=== PATIENT | female | born 1970 | race Caucasian/White ===

== ENCOUNTER → 2017-03-04 | Outpatient (CLI) | payer OTHER ==
[~2017-03-04] MED LIST: ATIVAN0.5 MG PO; CLARITIN5 MG PO; PROBIOTIC1 EAC1 PO; TIZANIDINE HCL2 M1 PO
== END ==
LOC: ULTRA 13:01
DX: N63 Unspecified lump in breast (principal)

== ENCOUNTER → 2018-08-21 | Outpatient (CLI) | payer OTHER | LOC: RAD 01:29 → ULTRA 16:31 → RAD 16:38 | DX: N64.4 Mastodynia (principal); R92.2 Inconclusive mammogram ==

== ENCOUNTER → 2019-08-14 | Outpatient (CLI) | payer OTHER | LOC: RAD 01:08 | DX: Z12.31 Encounter for screening mammogram for malignant neoplasm of breast (principal); N60.19 Diffuse cystic mastopathy of unspecified breast; N60.01 Solitary cyst of right breast; N60.02 Solitary cyst of left breast ==

== ENCOUNTER → 2020-01-03 | Outpatient (CLI) | payer OTHER ==
[~2020-01-03] VITALS: Ht 162.6 cm; Wt 72.6 kg
[~2020-01-03] MED LIST changes: +ATIVAN2 MG PO; +MULTI VITAMIN1 EACH PO; +PANTOPRAZOLE SO40 M1 PO; +VALACYCLOVIR500 MG PO; +XOPENEX HFA15 GM INH
--- NOTE | ~2020-01-03 | P ---
[facility] [place] [address] PROCEDURE REPORT Name: GILDARDO BRANTLEY Room #: REG [facility]#: [id number] Admission: 01/03/20 Attend Phys: Javed Medley MD Discharge: Date of : 66 Report #: [id number] THIS REPORT FOR: cc: Raj Kumar,Javed Coyle MD ~ CC: Javed Albert OUTPATIENT COLONOSCOPY BRIEF HISTORY: The patient is a 49-year-old woman with a history of colon polyps. She had 2 polyps removed one time and one was a cm. She presents for high risk screening colonoscopy. 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 PREOPERATIVE DIAGNOSIS: High-risk screening colonoscopy. POSTOPERATIVE DIAGNOSES: 1. Diminutive polyps x 2, cecum. 2. A 5-mm flat polyp, proximal ascending colon. MEDICATIONS: Deep sedation with propofol per anesthesia. SPECIMENS: 1. Cecal polyps x 2. 2. Polyp, proximal ascending colon. ESTIMATED BLOOD LOSS: 3 mL. PROCEDURE: Colonoscopy to cecum and terminal ileum with snare polypectomy and biopsy. FINDINGS: Prior to propofol sedation, procedure of colonoscopy discussed with the patient as well as potential risks and its complications. She indicates she understands and desires to proceed. DESCRIPTION OF PROCEDURE: With the patient in left lateral decubitus position, digital examination was completed, which revealed no abnormalities. Subsequently, the Olympus video colonoscope was introduced into the rectum, advanced under direct vision to the cecum. It was done with minimal difficulty. The cecum was identified by ileocecal valve and the appendiceal orifice. I was able to visualize the distal segment of terminal ileum, which was inspected and noted to be unremarkable. At that point, the scope was slowly withdrawn and careful circumferential views obtained. Upon slow withdrawal of the scope, there were limitations of prep. However, with extensive irrigation and [facility] [address] [place] [address] PROCEDURE REPORT Name: KARONGILDARDO Cat Room #: REG [facility].#: [id number] Admission: 01/03/20 Attend Phys: Javed Medley MD Discharge: Date of : 66 Report #: [id number] suctioning, we were overall able to achieve a good prep. The mucosa was within normal limits, normal vascular pattern, normal light reflex. Within the cecum, 2 diminutive polyps were seen and removed with biopsy forceps. As we withdrew the scope further, a flat 5-mm polyp in the proximal ascending colon was seen and removed by cold snare polypectomy. The scope was further withdrawn and no additional neoplastic lesions were seen during the remainder of the exam. The mucosa was otherwise unremarkable. In the sigmoid colon, there was ____, but I did not see any evidence of diverticular disease. Scope was further withdrawn and no additional abnormalities were seen. Scope was withdrawn from the rectum, no abnormalities were seen. Upon retroflexion, no abnormalities were seen. Scope was withdrawn. The patient tolerated the procedure well. CONDITION OF THE PATIENT UPON DISCHARGE: Following the procedure, the patient was drowsy, arousable and conversant. She will be discharged home when fully ambulatory. INSTRUCTIONS TO THE PATIENT AND FAMILY AT THE TIME OF DISCHARGE: Total of 3 polyps were identified and removed today. We will follow up on the pathology and make further recommendations. If all 3 are adenomas, she should return in 3 years, otherwise return in 5 years for high risk screening colonoscopy. Withdrawal time from the cecum was 18 minutes 33 seconds. By: [id number] [id number] Javed Medley MD /nt
--- NOTE | 2020-01-04 16:07 | PATH ---
[facility] [place] [address] PATHOLOGY RPT PROCEDURE Name: GILDARDO RENE Room #: REG [facility] Jono.#: [id number] Admission: 01/03/20 Date of : 66 Discharge: Report #: [id number] Path Case #: [id number] [facility] Accession Number: [id number] . 01 Material submitted: . PART A: cecum - POLYP AT CECUM X2 PART B: colon - POLYP AT PROXIMAL ASCENDING COLON. Modifiers: proximal, ascending . 01 Clinical history: . Pre-op diagnosis: History of polyps Post-op diagnosis: Colon polyps . 02 Diagnosis: A. Polyp x 2, cecum, endoscopic biopsy: - One fragment showing minute crypt adenoma without high grade dysplasia. - One fragment showing hyperplastic polyp without dysplasia. . B. Polyp, proximal ascending colon, endoscopic biopsy: - Tubular adenoma. - Negative for high grade dysplasia. (IUV/db; 01/04/2020) LBQ 01/04/2020 1225 Local . 02 Electronically signed: . Radha Jolly MD, Pathologist NPI- [id number] . 01 Gross description: . A. The specimen is received in formalin, labeled "Gildardo Rene, polyp at cecum x2". Received are two segments of pale lyons soft tissue ranging in size from 0.2 to 0.4 cm in maximum dimensions. The specimen is submitted entirely in cassette A1. . B. The specimen is received in formalin, labeled "Gildardo Rene, polyp at proximal ascending". Received are four segments of pale lyons soft tissue ranging in size from 0.3 to 0.6 cm in maximum dimensions. The specimen is submitted entirely in cassette B1. (CAA; 01/03/2020) QAC/QAC 01/03/2020 1749 Local . 02 Pathologist provided ICD-10: D12.0, D12.2 . 02 CPT . 211468, 785133 Specimen Comment: A courtesy copy of this report has been sent to [phone], [place] [address] PATHOLOGY RPT PROCEDURE Name: GILDARDO RENE Room #: REG [facility]#: [id number] Admission: 01/03/20 Date of : 66 Discharge: Report #: [id number] Path Case #: [id number] Specimen Comment: [id number] Specimen Comment: Report sent to / DR UGALDE Performed at: [address] [facility], [place], [place] [id number] MD Grover Brooks MD Phone: [phone] Performed at: [address] [id number] MD Radha Jolly MD Phone: [phone]
== END | disposition home or self-care (01) ==
LOC: GI 12-20 09:31
DX: Z12.11 Encounter for screening for malignant neoplasm of colon (principal); Z86.010 Personal history of colon polyps; D12.0 Benign neoplasm of cecum; D12.2 Benign neoplasm of ascending colon; J45.909 Unspecified asthma, uncomplicated; K21.9 Gastro-esophageal reflux disease without esophagitis; G43.909 Migraine, unspecified, not intractable, without status migrainosus; Z98.890 Other specified postprocedural states; Z79.899 Other long term (current) drug therapy; Z87.19 Personal history of other diseases of the digestive system; Z90.710 Acquired absence of both cervix and uterus; Z90.49 Acquired absence of other specified parts of digestive tract; Z79.01 Long term (current) use of anticoagulants; Z87.442 Personal history of urinary calculi; Z86.718 Personal history of other venous thrombosis and embolism; Z88.2 Allergy status to sulfonamides; Z91.040 Latex allergy status; Z91.041 Radiographic dye allergy status; Z88.8 Allergy status to other drugs, medicaments and biological substances
CPT/HCPCS: 62110; 62900

== ENCOUNTER → 2020-02-15 | Outpatient (CLI) | payer OTHER | LOC: LABMALL 15:11 | DX: K57.32 Diverticulitis of large intestine without perforation or abscess without bleeding (principal); I87.8 Other specified disorders of veins; N83.202 Unspecified ovarian cyst, left side ==

== ENCOUNTER → 2020-02-25 | Outpatient (CLI) | payer OTHER | LOC: MRI 10:43 | DX: M51.27 Other intervertebral disc displacement, lumbosacral region (principal); M79.89 Other specified soft tissue disorders ==

== ENCOUNTER 2020-03-19 08:13 | Day surgery (SDC) | payer OTHER ==
[~2020-03-19] VITALS: Ht 162.6 cm; Wt 77.1 kg
--- NOTE | ~2020-03-19 | O ---
[facility] [place] [address] OPERATIVE REPORT Name: GILDARDO MONTEIRO Room #: DEP [facility] M.R.#: [id number] Admission: 03/19/20 Attend Phys: Monty Deleon MD Discharge: 03/19/20 Date of : 66 Report #: [id number] THIS REPORT FOR: cc: Raj Kumar,Monty Mcdonald MD ~ CC: Monty Kumar MD DATE OF SERVICE: 03/19/2020 PREOPERATIVE DIAGNOSIS: Left inguinal hernia. POSTOPERATIVE DIAGNOSIS: Left inguinal hernia. PROCEDURE PERFORMED: Laparoscopic repair of left inguinal hernia with mesh. COMPLICATIONS: None. ESTIMATED BLOOD LOSS: 5 mL. SURGEON: Monty Deleon MD PROCEDURE NOTE: With the patient under general anesthesia, Berrios catheter was placed, IV antibiotic was administered. Abdomen was prepped and draped in sterile fashion. Timeout was performed. A 0.25% Marcaine was used to anesthetize skin adjacent to the umbilicus on the left side. This is a 2 cm transverse incision. The anterior fascia was opened a little over centimeter. The muscle was spread along the length of its fiber. The posterior fascia was then identified. The space between the muscle and the posterior fascia was bluntly dissected free. An 11 mm balloon trocar was placed. CO2 was administered. The space was opened up and I could see and place a 5 mm trocar inferior about 2 inches below the umbilicus. Using this trocar and cautery and blunt dissection, the properitoneal space was opened up. The dissection was carried slightly to the right at the midline. A second 5 mm trocar was placed about an inch and a half below the initial 5 mm trocar. Using both instruments, the patient's rest of properitoneal space was opened up. The inferior epigastric vessel was identified. This was preserved from harm. There is no direct defect identified at the level of the internal ring, which was isolated and freed up. There is a large cord lipoma found. This was brought back out of the internal ring back in the properitoneal space. The round ligament was then seen. I did then see a peritoneal sac. The round ligament was divided with cautery. A large 3DMax lightweight mesh was then placed in the properitoneal space and this was opened up positioned properly. SorbaFix was used to tack the mesh laterally in the lateral wall and then lateral superiorly. Then, [facility] [address] [place] [address] OPERATIVE REPORT Name: GILDARDO MONTEIRO Room #: DEP [facility] M.R.#: [id number] Admission: 03/19/20 Attend Phys: Monty Deleon MD Discharge: 03/19/20 Date of : 66 Report #: [id number] inferiorly tacked to Sav's ligament and superomedially to the rectus muscle. The mesh seated well. CO2 was then evacuated. Trocars removed. The fascia defect adjacent to the umbilicus closed with [id number] 0 Vicryl x 2. Skin was irrigated, closed with a 5-0 PDS. Steri-Strip, Band-Aids applied. The patient tolerated the procedure well. By: 1347 1422 Monty Deleon MD /nt
--- NOTE | ~2020-03-19 | H ---
[facility] [place] [address] HISTORY AND PHYSICAL Name: GILDARDO MONTEIRO Room #: [facility].#: [id number] Admission: Attend Phys: Monty Deleon MD Discharge: Date of : 66 Report #: [id number] THIS REPORT FOR: cc: Raj Kumar,Monty Mcdonald MD ~ CC: Monty Kumar PREOPERATIVE DIAGNOSIS: Left inguinal hernia. HISTORY OF PRESENT ILLNESS: The patient is a 49-year-old who is here for evaluation of left groin pain. The patient had a previous right-sided hernia, which according to my records more of an incisional hernia from her Pfannenstiel incision. The patient was working in the basement a couple of weeks ago, she was lifting objects. She developed pretty severe pain in the left groin. The pain was sharp. Pain comes across from the left side, going to the right side. No nausea or vomiting. Bowels are working well. No difficulty urinating. No burning or frequency. The patient does have a complex history of having a sarcoma located in the mesentery. She has been to [facility] and the [facility]. The patient was tender on exam in this area and she then had a CAT scan performed. The CT scan showed a left inguinal hernia present. This is felt to be the source of her pain. She is brought in for surgery. 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 History of fibromyalgia, Raynaud's syndrome, rhinitis, asthma, seasonal allergy, endometriosis. PAST SURGICAL HISTORY: Sinus surgery, gallbladder surgery, 2 C-sections, hernia, repair of scar, laparoscopy hysterectomy, back surgery. MEDICATIONS: She is on tizanidine, lorazepam, vitamin, Singulair, Claritin, Protonix. ALLERGIES: She is allergic to SULFA, IODINE, CELEBREX, ALL PAIN MEDICATION AND BACTRIM. FAMILY HISTORY: Father has COPD, prostate cancer, asthma. Mother had trigeminal neuralgia, asthma, Tarlov cyst fibromyalgia. Sibling, history of sarcoidosis, Lyme disease, rheumatoid arthritis, Tarlov cyst. Other history of immune disease and cancer in the family. SOCIAL HISTORY: The patient does not smoke. REVIEW OF SYSTEMS: Earlier this year, the patient did have 2-week of illness in which she quarantined herself. Her daughter apparently was traveling to [place]. Daughter was sick and also her father was sick. [facility] [address] [address] HISTORY AND PHYSICAL Name: GILDARDO MONTEIRO Room #: [facility].R.#: [id number] Admission: Attend Phys: Monty Deleon MD Discharge: Date of : 66 Report #: [id number]. PHYSICAL EXAMINATION: GENERAL: The patient is well-developed and well-nourished female, who is alert and oriented. HEENT: Pupils react to light. Extraocular muscles are intact. NECK: Soft and supple, no masses. LUNGS: Clear to auscultation. HEART: Regular rate and rhythm. No murmur or gallop. ABDOMEN: Soft, nondistended, nontender. There is a left inguinal hernia present. This is moderately tender. The patient had a prior scar in the right part of her Pfannenstiel incision and there is no recurrent hernia in this area. EXTREMITIES: No cyanosis, clubbing or edema. Motor and sensory exam normal. IMPRESSION AND PLAN: The patient with left groin pain related to lifting. No nausea or vomiting. CT scan shows a left inguinal hernia, which contains fat. There is a palpable hernia. Because of the pain, she is recommended to go ahead and have this hernia repaired. Laparoscopic approach is recommended. The patient is here for the left inguinal hernia repair. Use of mesh was discussed. Risk of bleeding, infection was discussed. The patient understands the procedure and the expected recovery. The patient wishes to proceed. By: 2213 2227 Monty Deleon MD /nt
[~2020-03-19 08:13] MED LIST changes: +CLARITIN10 MG PO; +SINGULAIR 10 MG10 M1 PO
[2020-03-19 09:28] VITALS: BP 102/69
[2020-03-19] MEDS ORDERED: TORADOL 10 MG T10 MG PO (11:50)
[2020-03-19 12:55] VITALS: BP 102/69
--- NOTE | 2020-03-20 07:56 | EKG ---
[facility] [place] [address] ELECTROCARDIOGRAM REPORT Name: GILDARDO MONTEIRO Room #: [facility] [place]..#: [id number] Admission: 03/19/20 Attend Phys: Monty Deleon MD Discharge: 03/19/20 Date of : 66 Report #: [id number] THIS REPORT FOR: cc: Raj Kumar Steven F. DO Lundgren, Craig H. MD [facility] THIS REPORT FOR: //name// [facility] Test Date: 2020-03-19 Test Time: 09:01:10 Pat Name: GILDARDO MONTEIRO Department: Room: 150 3 Gender: F Film Reader: marni : 1970 Requested By: Monty Deleon Order Number: [id number] MD: Balwinder Butler Measurements Intervals Lawn Rate: 66 P: -3 WA: 183 QRS: 22 QRSD: 89 T: 29 QT: 402 QTc: 422 Interpretive Statements Sinus rhythm Normal tracing No previous ECG available for comparison Electronically Signed On 03-20-2020 7:54:59 CDT by Balwinder Butler [email or web address] <ELECTRONICALLY SIGNED> By: Balwinder Butler MD, FAC 03/20/20 0754 0901 0901 Balwinder Butler MD, [facility] /EPI
== END 2020-03-19 13:45 | disposition home or self-care (01) ==
LOC: OR 08:13 → TBA 08:13 → OR 13:45
DX: K40.90 Unilateral inguinal hernia, without obstruction or gangrene, not specified as recurrent (principal); J45.909 Unspecified asthma, uncomplicated; G43.909 Migraine, unspecified, not intractable, without status migrainosus; F41.9 Anxiety disorder, unspecified; K21.9 Gastro-esophageal reflux disease without esophagitis; Z98.890 Other specified postprocedural states; Z79.899 Other long term (current) drug therapy; Z88.2 Allergy status to sulfonamides; Z91.041 Radiographic dye allergy status; Z91.040 Latex allergy status; Z90.49 Acquired absence of other specified parts of digestive tract; Z90.711 Acquired absence of uterus with remaining cervical stump; Z85.831 Personal history of malignant neoplasm of soft tissue
CPT/HCPCS: 50010; 50101; 50249; 50411; 50455; 50507; 50555; 50848; 52265; 53065; 53307; 56525; 56526; 62110; 62900; 70005

== ENCOUNTER → 2020-09-29 | Outpatient (CLI) | payer OTHER ==
[~2020-09-29] MED LIST changes: +TORADOL 10 MG T10 MG PO
== END ==
LOC: BC 08:49
PROVIDERS: ATTEND Neuromusculoskeletal Medicine & OMM
DX: Z12.31 Encounter for screening mammogram for malignant neoplasm of breast (principal); N60.01 Solitary cyst of right breast; N60.02 Solitary cyst of left breast; N63.0 Unspecified lump in unspecified breast

== ENCOUNTER → 2021-10-07 | Outpatient (CLI) | payer OTHER | LOC: BC 10:07 | PROVIDERS: ATTEND Neuromusculoskeletal Medicine & OMM | DX: Z12.31 Encounter for screening mammogram for malignant neoplasm of breast (principal); N64.89 Other specified disorders of breast ==